=== PATIENT | male | born 1995 | race Caucasian/White ===

== ENCOUNTER 2017-04-20 10:33 | Emergency (ER) | payer OTHER ==
[~2017-04-20] VITALS: Ht 185.4 cm; Wt 82.7 kg
[2017-04-20 10:45] VITALS: BP 121/71
[2017-04-20] MEDS ORDERED: DEXAMETHASONE 4 MG TABLET ONE (11:21)
[2017-04-20] MEDS ORDERED: DEXAMETHASONE 4 MG TABLET PO ONE (11:30)
== END 2017-04-20 11:31 | disposition home or self-care (01) ==
LOC: ED 11:00
DX: J03.00 Acute streptococcal tonsillitis, unspecified (principal); F17.200 Nicotine dependence, unspecified, uncomplicated
CPT/HCPCS: 99283

== ENCOUNTER 2017-05-17 17:16 | Emergency (ER) | payer OTHER ==
[~2017-05-17] VITALS: Ht 185.4 cm; Wt 83.3 kg
[2017-05-17 17:18] VITALS: BP 115/76
[2017-05-17] MEDS ORDERED: OXYcodone/APAP 5/325MG TABLET PO ONE (18:00)
[2017-05-17] MEDS ORDERED: OXYcodone/APAP 5/325MG TABLET ONE (18:08)
== END 2017-05-17 18:41 | disposition home or self-care (01) ==
LOC: ED 18:40
DX: S92.345A Nondisplaced fracture of fourth metatarsal bone, left foot, initial encounter for closed fracture (principal); G89.11 Acute pain due to trauma; M79.602 Pain in left arm; W19.XXXA Unspecified fall, initial encounter; Y93.89 Activity, other specified; Y92.89 Other specified places as the place of occurrence of the external cause; Y99.8 Other external cause status
CPT/HCPCS: 29125; 99284